=== PATIENT | male | born 1955 | race African-American/Black ===

== ENCOUNTER 2016-05-23 01:37 | Emergency (ER) | payer OTHER ==
[2016-05-23 02:16] LABS: Hematocrit 37 % (42-52); Hemoglobin 12.4 g/dl (14.0-18.0); Mean Corpuscular HGB Conc 33 g/dl (31-36); Mean Corpuscular Hemoglobin 29 pg (27-31); Mean Corpuscular Volume 87 fL (80-94); Mean Platelet Volume 8 um3 (7.4-10.4); Red Blood Count 4.25 10^6/ul (4.0-5.4); Red Cell Distribution Width 13 % (10.5-15); White Blood Count 6.8 10^3/ul (3.5-10.8)
[2016-05-23 02:25] LABS: Albumin 3.9 g/dL (3.2-5.2); BUN/Creatinine Ratio 10.3 (8-20); Calcium 9.3 mg/dL (8.6-10.3); EGFR African American 69.2 (>60); EGFR Non-African American 53.8 (>60); Globulin 3.7 g/dL (2-4); Potassium 3.7 mmol/L (3.5-5.0); Total Bilirubin 0.5 mg/dL (0.2-1.0); Total Protein 7.6 g/dL (6.4-8.9)
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
[2016-05-23 03:09] VITALS: BP 142/87
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
== END 2016-05-23 03:08 | disposition home or self-care (01) ==
LOC: ED 01:37
DX: R06.02 Shortness of breath (principal); R06.00 Dyspnea, unspecified; Z87.891 Personal history of nicotine dependence
CPT/HCPCS: 36415; 71020; 80053; 85025; 99282

== ENCOUNTER 2018-06-06 11:54 | Emergency (ER) | payer OTHER ==
[2018-06-06 14:02] VITALS: BP 159/95
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
[2018-06-06] MEDS ORDERED: NS 0.9% 1000 ML** 1,000 ML IV SCH (14:15)
== END 2018-06-06 14:30 | disposition short-term general hospital (02) ==
LOC: UCEAST 11:54
DX: N10 Acute pyelonephritis (principal); B96.20 Unspecified Escherichia coli [E. coli] as the cause of diseases classified elsewhere; R50.9 Fever, unspecified; Z87.891 Personal history of nicotine dependence
CPT/HCPCS: 81003; 87077; 87086; 87186; 96360; 99213; G0463

== ENCOUNTER 2018-06-06 15:05 | Observation (INO) | payer OTHER ==
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
[2018-06-06] MEDS ORDERED: NS 0.9% 1000 ML** 1,000 ML IV.FLUID IV ONE (15:47)
[2018-06-06 16:05] LABS: ABS Basophils 0 10^3/ul (0-0.2); ABS Eosinophils 0 10^3/ul (0-0.6); ABS Lymphocytes 1.1 10^3/ul (1.0-4.8); ABS Monocytes 1.1 10^3/ul (0-0.8); ABS Neutrophils 16.4 10^3/ul (1.5-7.7); ABS Nucleated RBC 0 10^3/ul; Eosinophil % 0 %; Hematocrit 38 % (36-46); Lymphocyte % 6.1 %; Mean Corpuscular HGB Conc 34 g/dL (31-36); Mean Corpuscular Hemoglobin 31 pg (27-31); Mean Corpuscular Volume 90 fL (80-94); Nucleated Red Blood Cells % 0.2; Platelet Count 255 10^3/uL (150-450); Red Blood Count 4.19 10^6 /uL (4.18-5.48); Red Cell Distribution Width 13 % (10.5-15); White Blood Count 18.7 10^3/uL (3.5-10.8)
[2018-06-06 16:10] LABS: Activated Partial Thrombo Time 30.6 seconds (26.0-36.3); INR 0.99 (0.77-1.02)
[2018-06-06 16:21] LABS: Troponin I 0.01 ng/mL (<0.04)
[2018-06-06 16:23] LABS: Albumin 3.9 g/dL (3.2-5.2); Albumin/Globulin Ratio 1.1 (1-3); BUN/Creatinine Ratio 8.7 (8-20); Calcium 9.1 mg/dL (8.6-10.3); EGFR African American 70.6 (>60); EGFR Non-African American 58.4 (>60); Globulin 3.7 g/dL (2-4); Potassium 4.3 mmol/L (3.5-5.0); Total Bilirubin 1.3 mg/dL (0.2-1.0); Total Protein 7.6 g/dL (6.4-8.9)
[2018-06-06 16:42] LABS: Influenza A Molecular NEGATIVE (Negative); Influenza B Molecular NEGATIVE (Negative)
[2018-06-06 16:54] LABS: Rapid Strep Molecular Negative (Negative)
[2018-06-06 17:31] LABS: Urine Appearance Clear; Urine Bacteria Absent (Absent); Urine Bilirubin Negative (Negative); Urine Blood 1+ (Negative); Urine Color Yellow; Urine Glucose Negative (Negative); Urine Ketones Negative (Negative); Urine Nitrite Negative (Negative); Urine Protein 2+(100 mg/dL) (Negative); Urine Red Blood Cell Trace(0-2/hpf) (Absent); Urine Specific Gravity 1.012 (1.010-1.030); Urine Squamous Epithelial Cell Present (Absent); Urine Urobilinogen Negative (Negative); Urine White Blood Cell 3+(>20/hpf) (Absent)
[2018-06-06] MEDS ORDERED: ED Piperacillin/Tazobac 3.375 3.375 GM/100 ML PREMIX.SET IVPB ONE (17:48)
[2018-06-06] MEDS ORDERED: Piperacillin/Tazobac (*) 3.375 GM BAG ONE (17:57)
[2018-06-06] MEDS ORDERED: Acetaminophen TAB* 325 MG PO PRN (23:22)
[2018-06-06] MEDS ORDERED: Ondansetron INJ* 2 MG/ML VIAL IV PRN (23:22)
[2018-06-06] MEDS ORDERED: Tamsulosin CAP* 0.4 MG PO ONE (23:24)
[2018-06-06] MEDS ORDERED: Enoxaparin(*) 40 MG/0.4 ML SYR SUBCUT SCH (23:45)
[2018-06-06] MEDS ORDERED: cefTRIAXone(*) 1 GM in NS 0.9% 50 ML* 50 ML IVPB ONE (23:50)
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
[2018-06-07] MEDS ORDERED: cefTRIAXone(*) 1 GM in NS 0.9% 50 ML* 50 ML IVPB SCH (01:00)
[2018-06-07] MEDS: NS 0.9% 1000 ML** 1,000 ML IV SCH ×2 (02:29→08:10)
[2018-06-07 07:19] LABS: ABS Basophils 0 10^3/ul (0-0.2); ABS Eosinophils 0 10^3/ul (0-0.6); ABS Lymphocytes 1.7 10^3/ul (1.0-4.8); ABS Neutrophils 12.6 10^3/ul (1.5-7.7); ABS Nucleated RBC 0 10^3/ul; Eosinophil % 0.2 %; Hematocrit 35 % (36-46); Hemoglobin 11.7 g/dL (14.0-18.0); Lymphocyte % 10.9 %; Mean Corpuscular HGB Conc 34 g/dL (31-36); Mean Corpuscular Hemoglobin 30 pg (27-31); Mean Corpuscular Volume 91 fL (80-94); Mean Platelet Volume 8.2 fL (7.4-10.4); Nucleated Red Blood Cells % 0; Platelet Count 219 10^3/uL (150-450); Red Blood Count 3.87 10^6 /uL (4.18-5.48); Red Cell Distribution Width 13 % (10.5-15); White Blood Count 15.3 10^3/uL (3.5-10.8)
[2018-06-07 07:29] LABS: BUN/Creatinine Ratio 8.9 (8-20); Calcium 8.6 mg/dL (8.6-10.3); EGFR Non-African American 59.5 (>60); Potassium 3.7 mmol/L (3.5-5.0)
--- NOTE | 2018-06-07 07:56 | CONSULT ---
Subjective Date of Service: 06/07/18 Review of Systems - Measurements Intake and Output: Intake and Output Last 24 Hours 06/05/18 06/06/18 06/07/18 06/08/18 06:59 06:59 06:59 06:59 Intake Total 155 Balance 155 Weight 199 lb 4.8 oz Intake: IV Fluids 100 ABX - ZOSYN 100 IVPB 55 Oral 0 Other: # Bowel Movements 0 Objective Active Medications: Acetaminophen (Tylenol Tab*) 650 mg PO Q4H PRN PRN Reason: FEVER/PAIN Enoxaparin Sodium (Lovenox(*)) 40 mg SUBCUT Q24H [facility] Last Admin: 06/07/18 02:29 Dose: 40 mg Ceftriaxone Sodium 1 gm/ (Sodium Chloride) 50 mls @ 200 mls/hr IVPB Q24H [facility] Last Admin: 06/07/18 02:28 Dose: 200 mls/hr Sodium Chloride (Ns 0.9% 1000 Ml) 1,000 mls @ 200 mls/hr IV PER RATE [facility] Stop: 06/08/18 04:29 Last Admin: 06/07/18 02:29 Dose: 200 mls/hr Ondansetron HCl (Zofran Inj*) 4 mg IV Q4H PRN PRN Reason: NAUSEA/VOMITING Pantoprazole Sodium (Protonix Tab*) 40 mg PO DAILY [facility] Vital Signs - 8 hr 06/07/18 06/07/18 06/07/18 00:59 01:25 03:25 Temperature 98.5 F 99.1 F 98.4 F Pulse Rate 94 105 101 Respiratory 18 20 24 Rate Blood Pressure 157/96 139/89 147/91 (mmHg) O2 Sat by Pulse 100 99 100 Oximetry 06/07/18 06/07/18 03:26 07:41 Temperature 98.4 F 99.1 F Pulse Rate 101 93 Respiratory 24 16 Rate Blood Pressure 147/91 130/92 (mmHg) O2 Sat by Pulse 100 100 Oximetry Oxygen Devices in Use Now: None Result Diagrams: 06/07/18 06:09 06/07/18 06:09 Microbiology and Other Data: Microbiology 06/06/18 Unknown Stool Occult Blood (BISHNU) - Final Stool Assessment/Plan - Billing Plan By Medical Problem: 1. 2. VTE PPX: Diet: Code Status: Admission Status and Rationale:
--- NOTE | 2018-06-07 08:02 | PN ---
Subjective Date of Service: 06/07/18 Interval History: HD#2 on 06/07 ID: 62 yo M THAO not on CPAP presented with UTI sx and SIRS mild NENO. Overnight no acute events, VSS, T Max 99.1, tachycardia resolved, voiding freely , tolerating PO Labs this morning still with leukocytosis to 15 otherwise all improved This morning he feels very well, no complaints, feels like he would like to go home, he says his urinary incontinence is much improved and now he still has mild dribbling but has the urge to go which is different than prior. No CP, SOB , GI complaints. Objective Active Medications: Acetaminophen (Tylenol Tab*) 650 mg PO Q4H PRN PRN Reason: FEVER/PAIN Enoxaparin Sodium (Lovenox(*)) 40 mg SUBCUT Q24H [facility] Last Admin: 06/07/18 02:29 Dose: 40 mg Ceftriaxone Sodium 1 gm/ (Sodium Chloride) 50 mls @ 200 mls/hr IVPB Q24H [facility] Last Admin: 06/07/18 02:28 Dose: 200 mls/hr Sodium Chloride (Ns 0.9% 1000 Ml) 1,000 mls @ 200 mls/hr IV PER RATE [facility] Stop: 06/08/18 04:29 Last Admin: 06/07/18 02:29 Dose: 200 mls/hr Ondansetron HCl (Zofran Inj*) 4 mg IV Q4H PRN PRN Reason: NAUSEA/VOMITING Pantoprazole Sodium (Protonix Tab*) 40 mg PO DAILY [facility] Vital Signs - 8 hr 06/07/18 06/07/18 06/07/18 00:59 01:25 03:25 Temperature 98.5 F 99.1 F 98.4 F Pulse Rate 94 105 101 Respiratory 18 20 24 Rate Blood Pressure 157/96 139/89 147/91 (mmHg) O2 Sat by Pulse 100 99 100 Oximetry 06/07/18 06/07/18 06/07/18 03:26 07:41 07:51 Temperature 98.4 F 99.1 F Pulse Rate 101 93 Respiratory 24 16 16 Rate Blood Pressure 147/91 130/92 (mmHg) O2 Sat by Pulse 100 100 100 Oximetry Oxygen Devices in Use Now: None Appearance: Well man in NAD Eyes: PERRLA Ears/Nose/Mouth/Throat: NL Teeth, Lips, Gums Neck: NL Appearance and Movements; NL JVP Respiratory: Symmetrical Chest Expansion and Respiratory Effort, Clear to Auscultation Cardiovascular: NL Sounds; No Murmurs; No JVD, RRR Abdominal: NL Sounds; No Tenderness; No Distention, No Hepatosplenomegaly Lymphatic: No Cervical Adenopathy Extremities: No Edema Skin: No Rash or Ulcers Neurological: Alert and Oriented x 3 Result Diagrams: 06/07/18 06:09 06/07/18 06:09 Microbiology and Other Data: Microbiology 06/06/18 Unknown Stool Occult Blood (BISHNU) - Final Stool Assess/Plan/Problems-Billing Assessment: 62 yo M THAO not on CPAP, EtoH use, CLBP, mild CKD, presented with UTI sx and SIRS with fever and urinary incontinence. - Patient Problems (1) SIRS (systemic inflammatory response syndrome) Current Visit: Yes Status: Acute Code(s): R65.10 - SIRS OF NON-INFECTIOUS ORIGIN W/O ACUTE ORGAN DYSFUNCTION SNOMED Code(s): 731311429 Comment: -Source urinary -Improved s/p fluid bolus and abx, only with persistent WBC, resolved. (2) Urinary tract infection Current Visit: Yes Status: Acute Comment: -s/p Zosyn x1, now on CTX Day 2/7 on 06/07-will d/c on FQ -Follow culture data -Consider G/C, though testing would be not useful now-was never sent, he will be tx empirically, s/p CTX already, x 1 dose of 1g azithromycin, has had new sexual partners (3) Urinary incontinence Current Visit: Yes Status: Acute Code(s): R32 - UNSPECIFIED URINARY INCONTINENCE SNOMED Code(s): 576002039 Comment: -In setting of UTI and pre-exisiting BPH -S/p Tamsulosin 0.4mg x 1 on 06/06, will d/c home on 14 days and can d/c afterwards (4) Low back pain Current Visit: Yes Status: Acute Code(s): M54.5 - LOW BACK PAIN SNOMED Code(s): 358515591 Comment: -Chronic without change, s/p rectal exam in ED with no red flag features -Tylenol PRN (5) Chronic kidney disease (CKD) stage G2/A1, mildly decreased glomerular filtration rate (GFR) between 60-89 mL/min/1.73 square meter and albuminuria creatinine ratio less than 30 mg/g Current Visit: Yes Status: Acute Code(s): N18.2 - CHRONIC KIDNEY DISEASE, STAGE 2 (MILD) SNOMED Code(s): 924631841 Comment: -Mild CKD at baseline, Cr stable and only mildy fluid responsive (6) THAO (obstructive sleep apnea) Current Visit: Yes Status: Acute Code(s): G47.33 - OBSTRUCTIVE SLEEP APNEA ( ADULT) (PEDIATRIC) SNOMED Code(s): 68251719 Comment: -Not on CPAP (7) DVT prophylaxis Current Visit: Yes Status: Acute Code(s): AQB0596 - SNOMED Code(s): 657968797 Comment: -Lovenox (8) Full code status Current Visit: Yes Status: Acute Code(s): Z78.9 - OTHER SPECIFIED HEALTH STATUS SNOMED Code(s): 143298206 Status and Disposition: Stable on floor, dispo: Potential d/c to home
[2018-06-07] MEDS ORDERED: Pantoprazole TAB * 40 MG TAB PO SCH (09:00)
[2018-06-07] MEDS ORDERED: Azithromycin TAB* 250 MG PO ONE (11:29)
[2018-06-07 11:42] VITALS: BP 130/76
--- NOTE | 2018-06-07 18:43 | DS ---
CC: Dr. Geovanni Red DISCHARGE SUMMARY: DISPOSITION: At time of discharge is stable to return to home. DATE OF ADMISSION: 06/06/18 DATE OF DISCHARGE: 06/07/18 PRIMARY CARE PROVIDER: Dr. Geovanni Red. PRIMARY DIAGNOSES: 1. Urinary tract infection. 2. Urinary incontinence. 3. Systemic inflammatory response syndrome positive criteria, resolved on discharge SECONDARY DIAGNOSES: 1. Obstructive sleep apnea, not currently on CPAP. 2. Gastroesophageal reflux disease. MEDICATIONS ON DISCHARGE: 1. Ciprofloxacin 500 mg p.o. b.i.d. for an additional 6 days after discharge. 2. Tamsulosin 0.4 mg p.o. q.h.s. 14 days after discharge, #14 prescribed. 3. Omeprazole 20 mg p.o. daily. 4. Cialis 5 mg p.o. daily. Medication changes on this admission is the addition of ciprofloxacin total of 6 days after discharge as well as tamsulosin for a total of 14 days after discharge. HISTORY OF PRESENT ILLNESS AND HOSPITAL COURSE: 62-year-old male with above past medical history, who presented to the emergency room by [facility] with a chief complaint of intermittent fever for 1 week. The patient reports that he had been intermittently sick with chills and had one episode of urinary incontinence. In the emergency room, he was tachycardic and febrile, mildly elevated white blood cell count. The patient was diagnosed with SIRS criteria and concern for urinary source after UA showed leuk esterase, bacteria, white blood cells and the hospitalist team was asked to evaluate the patient for admission. His hospital course by problem is as follows: 1. SIRS criteria. The patient received 2 L normal saline with immediate resolution in his fever as well as tachycardia. He also was placed on ceftriaxone. Urine cultures, as well as gonorrhea and chlamydia cultures, were sent for the patient and by hospital day 1, his vital signs returned to normal with the only persistent systemic inflammatory response being mild leukocytosis that was improving compared to admission. The patient was placed empirically on ciprofloxacin and furthermore, he was treated empirically for gonorrhea and chlamydia as he reported that he had several new sex partners in the last few days before symptoms and did not use a condom and was unsure of their gonorrhea and chlamydia status. Thus, he was treated with ceftriaxone and azithromycin 1 g total while gonorrhea and chlamydia cultures were pending. 2. Urinary tract infection. This is presumed secondary to community source possibly as above with STI complication. He will be treated on ciprofloxacin empirically for 7 days and we will follow culture data as well as GC data after discharge because he is clinically well on hospital day 2. He is stable for discharge to home. 3. Urinary incontinence. As per his ED course, the patient complained of 1 episode of urinary incontinence and has mild urge incontinence that persisted throughout his hospitalization. He was placed on tamsulosin, which helped his symptoms considerably and by hospital day 2, he felt that he had only minor leakage during urge incontinence and no mary urinary incontinence and was likely thought that this was related to his urinary tract infection. 4. Sleep apnea. The patient is noncompliant on his CPAP prior to admission and thus was not offered to him. 5. GERD. He was continued on his Protonix. He remained on DVT prophylaxis, regular diet, and he was full code during this hospitalization. By hospital day 2, after fluid resuscitation and antibiotics, the patient felt much better, was able to ambulate, tolerating p.o., voiding freely with no acute complaints and was stable to be discharged to home with followup with primary care provider. He was given a work note to be released for 2 days for continued rest in the setting of longstanding febrile urinary tract infection with ultimately systemic inflammatory response as a result. On date of discharge, the patient's vital signs on day of discharge, temperature 98, pulse rate 87, oxygen saturation 99% on room air, blood pressure 130/76, respiratory rate of 12. Labs on date of discharge, he has a white blood cell count of 15.3, hemoglobin of 11.7, hematocrit of 35, platelets of 219. BMP that shows 135 sodium, potassium 3.7, chloride 104, carbon dioxide 24, BUN 11, creatinine 1.2, and glucose 121. Other data collected in this hospitalization, rapid flu was negative and a group A strep was negative. Urine culture and gonorrhea and chlamydia are pending at time of discharge. Blood cultures were drawn as well that showed no growth to date on hospital day 2 as a preliminary result. ITEMS TO BE FOLLOWED UPON AFTER DISCHARGE: UTI. Ensure the patient's symptoms have resolved including his urge incontinence, which was new in the setting of UTI. He will be called if culture data ultimately is noncompatible with ciprofloxacin or if his gonorrhea or chlamydia were positive, he was treated empirically. TIME SPENT: Thirty minutes was spent in the planning of this discharge with over half of that spent directly at the bedside of the patient, counseling, and answering all questions. We advised him to follow up with his primary care provider and also advised him to return to the hospital if there are any new symptoms, fevers, or concerns on his part. He is agreeable to the plan and has no further questions. If there are any concerns about the care of this patient during this hospitalization, please do not hesitate to reach out and contact us. [id number]/[facility] #: [id number] DIAMOND
[2018-06-09 13:58] LABS: Hepatitis C Antibody Nonreactive (Nonreactive)
== END 2018-06-07 13:40 | disposition home or self-care (01) ==
LOC: ED 15:05 → MED 23:22
PROVIDERS: ADMIT Internal Medicine; ATTEND Internal Medicine
DX: N39.0 Urinary tract infection, site not specified (principal); R32 Unspecified urinary incontinence; R65.10 Systemic inflammatory response syndrome (SIRS) of non-infectious origin without acute organ dysfunction; G47.33 Obstructive sleep apnea (adult) (pediatric); N18.2 Chronic kidney disease, stage 2 (mild); K21.9 Gastro-esophageal reflux disease without esophagitis; R50.9 Fever, unspecified; Z87.891 Personal history of nicotine dependence; N40.0 Benign prostatic hyperplasia without lower urinary tract symptoms; R06.02 Shortness of breath; M54.5 Low back pain
CPT/HCPCS: 36415; 71046; 80048; 80053; 81003; 81015; 82270; 83605; 84484; 85025; 85610; 85730; 86703; 86803; 87040; 87651; 93005; 96361; 96365; 96372; 96375; 99283; A9270-GY; G0378; J0696; J1650; J2543

== ENCOUNTER → 2018-07-17 11:44 | Emergency (ER) | payer OTHER ==
[~2018-07-17 11:44] MED LIST: LORazepam TAB(*) 1 MG PO ONE; Sulfamethox/Trimethoprim DS 800/160* TAB PO ONE; chlordiazePOXIDE CAP* 25 MG PO ONE
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
[2018-07-17 12:41] LABS: ABS Lymphocytes 1.8 10^3/ul (1.0-4.8); ABS Monocytes 0.7 10^3/ul (0-0.8); ABS Neutrophils 4.5 10^3/ul (1.5-7.7); Eosinophil % 0.2 %; Hematocrit 40 % (42-52); Hemoglobin 13.4 g/dL (14.0-18.0); Lymphocyte % 25.6 %; Mean Corpuscular HGB Conc 34 g/dL (31-36); Mean Corpuscular Hemoglobin 31 pg (27-31); Mean Corpuscular Volume 90 fL (80-94); Mean Platelet Volume 7.6 fL (7.4-10.4); Nucleated Red Blood Cells % 0.1; Platelet Count 252 10^3/uL (150-450); Red Blood Count 4.38 10^6 /uL (4.18-5.48); Red Cell Distribution Width 14 % (10.5-15)
[2018-07-17 12:59] LABS: Albumin 4.1 g/dL (3.2-5.2); BUN/Creatinine Ratio 9.8 (8-20); EGFR African American 80.9 (>60); EGFR Non-African American 66.9 (>60); Globulin 4.1 g/dL (2-4); Magnesium 1.9 mg/dL (1.9-2.7); Potassium 4.1 mmol/L (3.5-5.0); Total Bilirubin 1.6 mg/dL (0.2-1.0); Total Protein 8.2 g/dL (6.4-8.9); Troponin I 0.01 ng/mL (<0.04)
[2018-07-17 13:16] LABS: Urine Appearance Clear; Urine Bacteria Absent (Absent); Urine Bilirubin Negative (Negative); Urine Blood 1+ (Negative); Urine Color Yellow; Urine Glucose Negative (Negative); Urine Ketones Trace (Negative); Urine Nitrite Negative (Negative); Urine Protein 2+(100 mg/dL) (Negative); Urine Red Blood Cell Trace(0-2/hpf) (Absent); Urine Specific Gravity 1.014 (1.010-1.030); Urine Squamous Epithelial Cell Present (Absent); Urine Urobilinogen Negative (Negative); Urine White Blood Cell 1+(6-10/hpf) (Absent)
[2018-07-17 13:23] LABS: Alcohol < 10 mg/dL (<10)
[2018-07-17 13:37] LABS: TSH (Thyroid Stimulating Horm) 1.26 mcIU/mL (0.34-5.60)
[2018-07-17 13:47] LABS: Urine Benzodiazepine Screen None Detected (None Detect); Urine Opiates Screen None Detected (None Detect)
[2018-07-17 15:40] VITALS: BP 132/114
[2018-07-18 12:36] LABS: Neisseria gonorrhoeae (GC) RNA Negative (Negative)
== END | disposition home or self-care (01) ==
LOC: ED 11:44
DX: F14.129 Cocaine abuse with intoxication, unspecified (principal); F10.239 Alcohol dependence with withdrawal, unspecified; Y90.0 Blood alcohol level of less than 20 mg/100 ml; R94.31 Abnormal electrocardiogram [ECG] [EKG]; N40.0 Benign prostatic hyperplasia without lower urinary tract symptoms; Z87.891 Personal history of nicotine dependence
CPT/HCPCS: 36415; 80053; 80307; 80320; 81003; 81015; 83605; 83735; 84443; 84484; 85025; 87086; 87491; 87591; 93005; 99283; A9270-GY; G0480

== ENCOUNTER 2018-08-13 07:53 | Emergency (ER) | payer OTHER ==
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
[2018-08-13] MEDS: Ketorolac INJ* 30 MG/ML 1 ML VIAL IM ONE (08:37)
[2018-08-13 08:54] VITALS: BP 159/109
== END 2018-08-13 08:52 | disposition home or self-care (01) ==
LOC: ED 07:53
DX: K64.5 Perianal venous thrombosis (principal); Z87.891 Personal history of nicotine dependence
CPT/HCPCS: 96372; 99282; J1885

== ENCOUNTER 2018-09-09 09:35 | Emergency (ER) | payer OTHER ==
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
[2018-09-09 09:52] LABS: ABS Basophils 0.1 10^3/ul (0-0.2); ABS Eosinophils 0.1 10^3/ul (0-0.6); ABS Lymphocytes 1.4 10^3/ul (1.0-4.8); ABS Monocytes 0.6 10^3/ul (0-0.8); ABS Neutrophils 6.2 10^3/ul (1.5-7.7); Hematocrit 40 % (42-52); Lymphocyte % 17.3 %; Mean Corpuscular HGB Conc 35 g/dL (31-36); Mean Corpuscular Hemoglobin 33 pg (27-31); Mean Corpuscular Volume 93 fL (80-94); Mean Platelet Volume 7.2 fL (7.4-10.4); Nucleated Red Blood Cells % 0.1; Platelet Count 265 10^3/uL (150-450); Red Blood Count 4.29 10^6 /uL (4.18-5.48); Red Cell Distribution Width 14 % (10-15); White Blood Count 8.4 10^3/uL (3.5-10.8)
--- OUTSIDE RECORDS SUMMARY | 2018-09-09 10:08 | XMS REPORT | Continuity of Care Document ---
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 Geovanni Red MD Primary Care Physician Unavailable Payers Date Identification Numbers Payment Provider Subscriber Policy Number: [id number] Julissa Blayne Jean Group Number: [id number] [address] PayID: [id number] [place] [address] Problems Active Problems Provider Date Anemia Olivia Gongora PA-C Onset: 08/05/2018 Digestive symptom Olivia Gongora PA-C Onset: 08/05/2018 Nausea Olivia Gongora PA-C Onset: 08/05/2018 Gastroesophageal reflux disease Olivia Gongora PA-C Onset: 08/05/2018 Essential hypertension Olivia Gongora PA-C Onset: 08/17/2018 Social History Type Date Description Comments Sex Unknown Tobacco Use Start: Unknown End: Unknown Patient is a former smoker Smoking Status Reviewed: 08/05/18 Patient is a former smoker Allergies, Adverse Reactions, Alerts Description No Known Drug Allergies Medications Active Medications SIG Qnty Indications Ordering Date Provider Colyte With Flavor by mouth as 4000ml Pebbles 08/11/2018 Packs directed MD Timothy 240gm Solution Rec Work Excuse Patient scheduled Pebbles 08/07/2018 for a procedure MD Timothy on 09/08/18. Please excuse from work on 09/07 and 09/08/18. Tadalafil Take 1 Tablet By Unknown 5mg Tablets Mouth Every Day Chlordiazepoxide HCL Take 1 Capsule By Unknown 25mg Mouth Three Times Capsules Daily as Needed For Withdrawal Symptoms, Maximum Daily Dose Of 3 Per Day Omeprazole 1 by mouth every Unknown 20mg Capsules DR day History Medications Suprep Bowel Prep Kit as directed sanjay Rogel 08/05/2018 - MD Timothy 08/11/2018 17.5-3.13-1.6GM/177ML Solution Vital Signs Date Vital Result Comment 08/05/2018 8:11am Height 74 inches 6'2" Weight 194.00 lb BP Systolic 161 mmHg BP Diastolic 109 mmHg Heart Rate 92 /min BMI (Body Mass Index) 24.9 kg/m2 Results Test Date Facility Test Result H/L Range Note Laboratory test 07/17/2018 [facility] Urine Drug Screen <pending> finding Alcohol 07/17/2018 [facility] Z#Other <pending> Observations CMP, Magnesium, 07/17/2018 [facility] Magnesium <pending> Phosphorus Ser/Plasma Mass/Vol Phosphorus <pending> CMP(!) 07/17/2018 [facility] Sodium(!) <pending> Potassium(!) <pending> Chloride Serum/Plasma(!) <pending> Carbon Dioxide Ser/Plasm(!) <pending> BUN - Urea Nitrogen(!) <pending> Calcium Ser/Plasma Mass/Vol(!) <pending> Creatinine Serum Mass/Vol(!) <pending> Glucose Serum(!) <pending> BUN/Creatinine Ratio(!) <pending> Albumin Serum/Plasma(!) <pending> Alkaline Phosphatase(!) <pending> Bilirubin Total Mass/Vol(!) <pending> Ast - Sgot <pending> Alt - SGPT <pending> Protein Total <pending> Laboratory test 07/17/2018 [facility] Troponin I <pending> finding CBC W/Auto 07/17/2018 [facility] White Blood Count <pending> Differential(!) Ser Auto CNT RBC Red Blood Count <pending> Hemoglobin Blood <pending> Hematocrit <pending> MCV (Corpuscular Volume) <pending> MCH (Corpuscular Hemoglobin) <pending> MCHC (Corpuscular Hemog Conc) <pending> RDW <pending> Platelet Count Blood Auto CNT <pending> MPV <pending> Lymph% <pending> Castro% <pending> Neutrophil % <pending> Absolute Lymphocytes <pending> Absolute Monocytes <pending> Absolute Neutrophils <pending> Plan of Treatment Future Appointment(s):09/08/2018 12:15 pm - Pebbles Aguirre MD at [facility]08/05/2018 - CDE Rosenbaum-CK21.9 Gastro-esophageal reflux disease without eneqwvnlhdxR84.0 GlbdhjF09.4 Change in bowel whtwdB88.9 Anemia, unspecified
--- OUTSIDE RECORDS SUMMARY | 2018-09-09 10:08 | XMS REPORT | Continuity of Care Document ---
:1955 External Reference #:[id number] Author Name Elda Bowles Care Team Providers Name Role Phone Geovanni Red MD Primary Care Physician Unavailable Payers Date Identification Numbers Payment Provider Subscriber Effective: 2011 Policy Number: [id number] [employer] Blayne Jean Expires: 2018 PayID: [id number] [address] [address] [place] [address] Effective: 2011 Policy Number: [id number] [employer] Blayne Jean Expires: 2011 PayID: [id number] [address] [address] [place] [address] Policy Number: [id number] [employer] Blayne Jean PayID: [id number] [address] [place] [address] Family History Date Family Member(s) Observation Comments General Non-Contributory Social History Type Date Description Comments Sex Unknown Marital Status Single Occupation Currently Working ETOH Use consumes 5-6 beers per day Tobacco Use Start: Unknown End: Patient is a former smoker Unknown Recreational Drug Use Denies Drug Use Smoking Status Reviewed: 08/19/18 Patient is a former smoker Exercise Type/Frequency Does not exercise Allergies, Adverse Reactions, Alerts Active Allergies Reaction Severity Comments Date [place] Pectin Extract GI Upset 08/15/2018 Seeded Fruit GI Upset 08/15/2018 Medications Active Medications SIG Qnty Indications Ordering Provider Date Ibuprofen as needed Unknown 200mg Tablets Tadalafil Take 1 Tablet By Unknown 5mg Tablets Mouth Every Day Omeprazole 1 by mouth every Unknown 20mg Capsules day DR History Medications Tamsulosin HCL 1 po qd 30caps [place] Mace MD - Unknown 0.4mg Capsules Cephalexin one po qid [facility] - Unknown 500mg Tablets [place] Anusol-HC one twice a day Unknown - Unknown 25mg for 3 days Suppository Vital Signs Date Vital Result Comment 08/19/2018 1:08pm Height 72 inches 6'0" Weight 198.00 lb Heart Rate 84 /min BP Systolic Sitting 160 mmHg BP Diastolic Sitting 94 mmHg Respiratory Rate 18 /min Body Temperature 98.2 F BMI (Body Mass Index) 26.9 kg/m2 Procedures Date Code Description Status 09/18/2011 90966 Polysomnography Sleep Staging 4+ Parameters W/Cpap Completed 08/22/2011 81063 Polysomnography Sleep Staging 4+ Parameters Completed Encounters Type Date Location Provider Dx Diagnosis Office Visit 06/07/2018 [facility] Liliya Luevano MD N39.41 Urge incontinence 9:55a natasha King Hospital[facility] R65.10 Sirs of non-infectious origin w/o acute organ dysfunction Office Visit 06/06/2018 [facility] Blayne R65.10 Sirs of 2:54p natasha King M.D. non-infectious Hospitalists origin w/o acute organ dysfunction R32 Unspecified urinary incontinence R35.0 Frequency of micturition M54.5 Low back pain N18.9 Chronic kidney disease, unspecified F10.20 Alcohol dependence, uncomplicated Office Visit 10/08/2011 10:53a Abby Cisneros 327.23 [facility] Jay Mora [facility] Pediatric V67.59 Exam Follow Up Other Office Visit 09/22/2011 Neurosurgery Iam Ospina 721.1 Spondylosis 10:00a [facility] Swan M.D. Cervical W/ Myelopathy Office Visit 08/31/2011 Abby Cisneros 327.23 Obstructive Sleep 11:50a Disorder Center Jay Mora Apnea Adult & Pediatric Office Visit 07/01/2009 [facility] 786.50 Pain Chest Unspec 2:00a Assnatasha nair M.D. Hospitalists 530.81 Esophageal Reflux 272.0 Hypercholesterolemia Pure Office Visit 06/30/2009 3:15a [facility] Chris Bach 786.50 Pain Chest Assnatasha nair M.D. Unspec Hospitalists 530.81 Esophageal Reflux
[2018-09-09 10:17] LABS: Albumin 3.8 g/dL (3.2-5.2); BUN/Creatinine Ratio 8.3 (8-20); Calcium 9.2 mg/dL (8.6-10.3); EGFR African American 66.9 (>60); EGFR Non-African American 55.3 (>60); Globulin 3.9 g/dL (2-4); Potassium 4.1 mmol/L (3.5-5.0); Total Protein 7.7 g/dL (6.4-8.9)
[2018-09-09 14:41] VITALS: BP 157/101
== END 2018-09-09 14:40 | disposition home or self-care (01) ==
LOC: ED 09:35
DX: R07.9 Chest pain, unspecified (principal); K21.9 Gastro-esophageal reflux disease without esophagitis; Z87.891 Personal history of nicotine dependence
CPT/HCPCS: 36415; 71045; 74019; 80053; 83605; 84484; 85025; 93005; 99283

== ENCOUNTER 2018-11-07 07:14 | Emergency (ER) | payer OTHER ==
[2018-11-07] MEDS ORDERED: NS 0.9% 1000 ML** 1,000 ML IV ONE (07:26)
[2018-11-07 07:49] LABS: ABS Basophils 0.1 10^3/ul (0-0.2); ABS Monocytes 0.6 10^3/ul (0-0.8); ABS Neutrophils 6.7 10^3/ul (1.5-7.7); Eosinophil % 0.1 %; Hematocrit 38 % (42-52); Hemoglobin 13.1 g/dL (14.0-18.0); Lymphocyte % 21.3 %; Mean Corpuscular HGB Conc 35 g/dL (31-36); Mean Corpuscular Hemoglobin 32 pg (27-31); Mean Corpuscular Volume 93 fL (80-94); Mean Platelet Volume 7.1 fL (7.4-10.4); Nucleated Red Blood Cells % 0.1; Platelet Count 313 10^3/uL (150-450); Red Blood Count 4.07 10^6 /uL (4.18-5.48); Red Cell Distribution Width 14 % (10-15); White Blood Count 9.4 10^3/uL (3.5-10.8)
[2018-11-07 08:09] LABS: Sodium 137 mmol/L (135-145)
[2018-11-07 08:10] LABS: Anion Gap 9 mmol/L (2-11); BUN/Creatinine Ratio 9.2 (8-20); Blood Urea Nitrogen 11 mg/dL (6-24); CO2 Carbon Dioxide 25 mmol/L (22-32); Calcium 9.4 mg/dL (8.6-10.3); Chloride 103 mmol/L (101-111); EGFR African American 75.2 (>60); EGFR Non-African American 62.1 (>60); Glucose 114 mg/dL (70-100); Potassium 3.8 mmol/L (3.5-5.0)
[2018-11-07 08:11] LABS: ALT 35 U/L (7-52); AST 49 U/L (13-39); Albumin 3.9 g/dL (3.2-5.2); Albumin/Globulin Ratio 1.1 (1-3); Alkaline Phosphatase 64 U/L (34-104); Globulin 3.6 g/dL (2-4); Magnesium 1.6 mg/dL (1.9-2.7); Total Protein 7.5 g/dL (6.4-8.9)
[2018-11-07 08:13] LABS: Alcohol < 10 mg/dL (<10)
[2018-11-07 08:28] LABS: TSH (Thyroid Stimulating Horm) 1.52 mcIU/mL (0.34-5.60)
[2018-11-07 08:46] LABS: Troponin I 0.01 ng/mL (<0.04)
[2018-11-07 09:27] LABS: Urine Benzodiazepine Screen Presumptive Positive (None Detect); Urine Opiates Screen None Detected (None Detect)
[2018-11-07] MEDS ORDERED: Famotidine IV* 10 MG/ML 2 ML (20 mg) IV SLOW PU ONE (09:29)
[2018-11-07] MEDS ORDERED: Aspirin 81 mg CHEW TAB* 81 MG TAB.CHEW PO ONE (09:30)
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
[2018-11-07] MEDS ORDERED: hydrALAZINE IV* 20 MG/ML VIAL IV SLOW PU ONE (09:41)
[2018-11-07 11:34] VITALS: BP 171/111
== END 2018-11-07 11:30 | disposition home or self-care (01) ==
LOC: ED 07:14
DX: I20.9 Angina pectoris, unspecified (principal); N40.0 Benign prostatic hyperplasia without lower urinary tract symptoms; Z87.891 Personal history of nicotine dependence; Z79.899 Other long term (current) drug therapy
CPT/HCPCS: 36415; 71046; 80053; 80307; 80320; 83605; 83735; 84443; 84484; 85025; 93005; 96361; 96374; 96375; 99285; A9270-GY; G0480; J0360

== ENCOUNTER 2021-01-29 09:10 | Observation (INO) ==
[2021-01-29 09:36] LABS: ABS Basophils 0.1 10^3/ul (0-0.2); ABS Eosinophils 0.2 10^3/ul (0-0.6); ABS Lymphocytes 2.4 10^3/ul (1.0-4.8); ABS Monocytes 0.7 10^3/ul (0-0.8); Eosinophil % 2.8 %; Hematocrit 39 % (42-52); Hemoglobin 13.7 g/dL (14.0-18.0); Lymphocyte % 38.4 %; Mean Corpuscular HGB Conc 35 g/dL (31-36); Mean Corpuscular Hemoglobin 33 pg (27-31); Mean Corpuscular Volume 93 fL (80-94); Platelet Count 219 10^3/uL (150-450); Red Blood Count 4.22 10^6 /uL (4.18-5.48); Red Cell Distribution Width 13 % (10-15); White Blood Count 6.4 10^3/uL (3.5-10.8)
[2021-01-29 09:55] LABS: ALT 81 U/L (7-52); Albumin/Globulin Ratio 0.9 (1-3); Alkaline Phosphatase 86 U/L (35-149); Blood Urea Nitrogen 10 mg/dL (6-24); CO2 Carbon Dioxide 22 mmol/L (22-32); Calcium 9.2 mg/dL (8.6-10.3); Chloride 101 mmol/L (101-111); Globulin 4.5 g/dL (2-4); Glucose 136 mg/dL (70-100); Lipase 40 U/L (11.0-82.0); Sodium 135 mmol/L (135-145); Total Protein 8.5 g/dL (6.4-8.9); eGFR CKD-EPI 61.2 (>60)
[2021-01-29 09:57] LABS: Troponin I 0.01 ng/mL (<0.03)
[2021-01-29 10:03] LABS: INR 1.07 (0.86-1.15)
[2021-01-29] MEDS ORDERED: Ondansetron 4 mg VIAL 2 MG/ML 2 ml VIAL IV ONE (10:12)
[2021-01-29] MEDS ORDERED: LORazepam 2 mg VIAL 1 ml IV PUSH ONE ×2 (10:12→12:42)
[2021-01-29] MEDS ORDERED: Lorazepam PYXIS KEY PRN ×2 (10:12→12:42)
[2021-01-29] MEDS ORDERED: NS 0.9% 1000 ml BAG 1,000 ML IV ONE (10:12)
[2021-01-29 10:35] LABS: Anion Gap 12 mmol/L (2-11)
[2021-01-29 11:59] LABS: Magnesium 1.6 mg/dL (1.9-2.7); Potassium Redraw 4.4 mmol/L (3.5-5.0)
[2021-01-29] MEDS ORDERED: Magnesium Sulfate 2 gm BAG 2 GM/50 ML BAG IVPB ONE (12:06)
[2021-01-29] MEDS ORDERED: hydrALAZINE 20 mg/ml 1 ML Vial IV IV SLOW PU ONE ×2 (12:10→12:42)
[2021-01-29] MEDS ORDERED: LORazepam 2 mg VIAL 1 ml ONE (12:44)
[2021-01-29 13:35] LABS: Urine Appearance Cloudy; Urine Bilirubin Negative (Negative); Urine Blood 1+ (Negative); Urine Color Yellow; Urine Glucose Negative (Negative); Urine Ketones Negative (Negative); Urine Nitrite Negative (Negative); Urine Protein 2+(100 mg/dL) (Negative); Urine Specific Gravity 1.016 (1.002-1.030); Urine Urobilinogen Negative (Negative)
[2021-01-29 13:43] LABS: Urine Bacteria Absent (Absent); Urine Red Blood Cell 1+(3-5/hpf) (Absent); Urine White Blood Cell Absent (Absent)
[2021-01-29 13:50] LABS: Alcohol, S 109 mg/dL (<13)
[2021-01-29 13:52] LABS: Urine Benzodiazepine Screen Presumptive Positive (None Detect); Urine Cannabinoids Screen None Detected (None Detect); Urine Opiates Screen None Detected (None Detect)
[2021-01-29] MEDS ORDERED: Thiamine 100 MG/ML 2 ml VIAL (200 mg) IM ONE (14:43)
[2021-01-29] MEDS ORDERED: Ondansetron 4 mg VIAL 2 MG/ML 2 ml VIAL IV PRN (14:45)
[2021-01-29 16:09] LABS: Rapid COVID-19 Molecular Undetected (Undetected)
[2021-01-29] MEDS: Enoxaparin 40 MG/0.4 ML SYR SUBCUT SCH (17:32)
[2021-01-30] MEDS ORDERED: Polyethylene Glycol 3350 17 GM PACKET PO ONE ×2 (02:24→10:00)
[2021-01-30 06:30] LABS: ABS Basophils 0.1 10^3/ul (0-0.2); ABS Eosinophils 0.1 10^3/ul (0-0.6); ABS Monocytes 0.6 10^3/ul (0-0.8); Eosinophil % 1.2 %; Hematocrit 35 % (42-52); Hemoglobin 12.3 g/dL (14.0-18.0); Lymphocyte % 29.4 %; Mean Corpuscular HGB Conc 35 g/dL (31-36); Mean Corpuscular Hemoglobin 33 pg (27-31); Mean Corpuscular Volume 93 fL (80-94); Mean Platelet Volume 8.4 fL (7.4-10.4); Nucleated Red Blood Cells % 0.1; Platelet Count 173 10^3/uL (150-450); Red Blood Count 3.76 10^6 /uL (4.18-5.48); Red Cell Distribution Width 13 % (10-15); White Blood Count 6.7 10^3/uL (3.5-10.8)
[2021-01-30 06:48] LABS: Albumin 3.6 g/dL (3.2-5.2); Calcium 9.2 mg/dL (8.6-10.3); Globulin 3.7 g/dL (2-4); Potassium 4.2 mmol/L (3.5-5.0); Total Bilirubin 1.4 mg/dL (0.2-1.0); Total Protein 7.3 g/dL (6.4-8.9)
[2021-01-30] MEDS: Multivitamins/Minerals TAB PO SCH (09:20)
[2021-01-30] MEDS: Enoxaparin 40 MG/0.4 ML SYR SUBCUT SCH (17:30)
[2021-01-30 22:02] LABS: Total Bilirubin 1.2 mg/dL (0.2-1.0)
[2021-01-31 05:18] LABS: ABS Eosinophils 0.2 10^3/ul (0-0.6); ABS Lymphocytes 1.6 10^3/ul (1.0-4.8); ABS Monocytes 0.5 10^3/ul (0-0.8); ABS Neutrophils 2.8 10^3/ul (1.5-7.7); Eosinophil % 3.2 %; Hematocrit 38 % (42-52); Hemoglobin 13.1 g/dL (14.0-18.0); Mean Corpuscular HGB Conc 34 g/dL (31-36); Mean Corpuscular Hemoglobin 32 pg (27-31); Mean Corpuscular Volume 94 fL (80-94); Mean Platelet Volume 8.5 fL (7.4-10.4); Platelet Count 157 10^3/uL (150-450); Red Blood Count 4.07 10^6 /uL (4.18-5.48); Red Cell Distribution Width 14 % (10-15); White Blood Count 5.1 10^3/uL (3.5-10.8)
[2021-01-31 05:42] LABS: Albumin 3.6 g/dL (3.2-5.2); Albumin/Globulin Ratio 0.9 (1-3); Calcium 9.5 mg/dL (8.6-10.3); Magnesium 1.9 mg/dL (1.9-2.7); Potassium 4.3 mmol/L (3.5-5.0); Total Bilirubin 0.9 mg/dL (0.2-1.0); Total Protein 7.6 g/dL (6.4-8.9); eGFR CKD-EPI 66.6 (>60)
[2021-01-31] MEDS: Multivitamins/Minerals TAB PO SCH (10:06)
[2021-01-31 12:14] VITALS: BP 113/77
== END 2021-01-31 13:28 | disposition home or self-care (01) ==
LOC: ED 09:10 → EDHOLD 09:10 → SUATTDRO 14:45 → MEDTELE 20:45
PROVIDERS: ADMIT Nurse Practitioner Adult Health; ATTEND Internal Medicine

== ENCOUNTER 2022-08-20 01:16 | Inpatient (IN) ==
[2022-08-20] MEDS ORDERED: Ondansetron 4 mg VIAL 2 MG/ML 2 ml VIAL IV ONE (01:47)
[2022-08-20] MEDS ORDERED: NS 0.9% 1000 ml BAG 2,000 ML IV ONE (01:47)
[2022-08-20 02:14] LABS: Hematocrit 32.2 % (38-53); Hemoglobin 11.2 g/dL (13.2-16.3); Mean Corpuscular Hemoglobin 32.1 pg (27-33); Mean Corpuscular Hgb Conc 34.9 g/dL (31-36); Mean Corpuscular Volume 91.9 fL (80-97); Mean Platelet Volume 8.7 fL (7.5-11.2); Platelet Count 201 10^3/uL (150-450); Red Blood Count 3.51 10^6/uL (4.06-5.63); Red Cell Distribution Width 13.9 % (12-17); White Blood Count 15.2 10^3/uL (3.6-10.2)
[2022-08-20 02:18] LABS: ABS Basophils 0.1 10^3/uL (0.0-0.1); ABS Lymphocytes 0.8 10^3/uL (1.0-4.8); ABS Monocytes 1.9 10^3/uL (0.0-1.1); ABS Neutrophils 12.4 10^3/uL (1.5-7.6); Lymphocyte % 5.4 %
[2022-08-20 02:20] LABS: INR 1.31 (0.88-1.18)
[2022-08-20 02:30] LABS: ALT 27 U/L (7-52); AST 57 U/L (13-39); Albumin 3.4 g/dL (3.2-5.2); Albumin/Globulin Ratio 0.6 (1-3); Alkaline Phosphatase 69 U/L (35-149); Anion Gap 12 mmol/L (2-16); Blood Urea Nitrogen 34 mg/dL (6-24); CO2 Carbon Dioxide 21 mmol/L (22-32); Calcium 9.3 mg/dL (8.6-10.3); Chloride 90 mmol/L (101-111); Creatinine, Serum 2.79 mg/dL (0.67-1.17); Globulin 5.4 g/dL (2-4); Glucose 126 mg/dL (70-100); Potassium 4.1 mmol/L (3.5-5.0); Sodium 123 mmol/L (135-145); Total Protein 8.8 g/dL (6.4-8.9); eGFR CKD-EPI 24.5 (>60)
[2022-08-20 02:36] LABS: Alcohol, S < 13 mg/dL (<13); High Sens Troponin Baseline 17 pg/mL (<20)
[2022-08-20] MEDS ORDERED: Albuterol HFA INHALER 8 gm MDI INH PRN (06:47)
[2022-08-20 07:22] LABS: Osmolality Serum 274 mOsm/kg (275-295)
[2022-08-20 07:33] LABS: Magnesium 1.3 mg/dL (1.9-2.7)
[2022-08-20] MEDS ORDERED: Magnesium Sulf 4 GM/100 ML IV 4,000 MG/100 ML BAG IVPB ONE (07:55)
[2022-08-20 07:57] LABS: Vitamin B12 306 pg/mL (180-914)
[2022-08-20] MEDS ORDERED: Lactated Ringers 1000 ml BAG 1,000 ML IV SCH ×3 (08:00→17:58)
[2022-08-20 09:57] LABS: Calcium 8.8 mg/dL (8.6-10.3); Creatinine, Serum 3.06 mg/dL (0.67-1.17); Magnesium 1.4 mg/dL (1.9-2.7); Potassium 4.1 mmol/L (3.5-5.0)
[2022-08-20 09:58] LABS: Albumin 3.4 g/dL (3.2-5.2); Albumin/Globulin Ratio 0.7 (1-3); Calcium 8.7 mg/dL (8.6-10.3); Creatinine, Serum 3.04 mg/dL (0.67-1.17); Potassium 4.3 mmol/L (3.5-5.0); Total Bilirubin 1.5 mg/dL (0.2-1.0); Total Protein 8.4 g/dL (6.4-8.9); eGFR CKD-EPI 22.1 (>60)
[2022-08-20 16:05] LABS: Calcium 9.1 mg/dL (8.6-10.3); Creatinine, Serum 2.98 mg/dL (0.67-1.17); Potassium 4.3 mmol/L (3.5-5.0); eGFR CKD-EPI 22.7 (>60)
[2022-08-20 16:10] LABS: Urine Osmo 348 mOsm/kg (150-1150)
[2022-08-20 16:15] LABS: Urine Benzodiazepine Screen None Detected (None Detect); Urine Cannabinoids Screen None Detected (None Detect); Urine Opiates Screen None Detected (None Detect)
[2022-08-20] MEDS ORDERED: Enoxaparin 40 MG/0.4 ML SYR SUBCUT SCH (20:00)
[2022-08-20] MEDS: Heparin 5000 UNITS/ML 1 mL VIAL SUBCUT SCH (21:01)
[2022-08-21] MEDS: Ondansetron 4 mg VIAL 2 MG/ML 2 ml VIAL IV PRN ×2 (02:26→17:39)
[2022-08-21 03:20] LABS: Mean Corpuscular Hemoglobin 32.2 pg (27-33); Mean Corpuscular Hgb Conc 34.9 g/dL (31-36); Mean Corpuscular Volume 92.2 fL (80-97); Mean Platelet Volume 8.8 fL (7.5-11.2); Platelet Count 151 10^3/uL (150-450); Red Blood Count 3.14 10^6/uL (4.06-5.63); Red Cell Distribution Width 14.2 % (12-17); White Blood Count 9.5 10^3/uL (3.6-10.2)
[2022-08-21 03:28] LABS: Albumin 2.8 g/dL (3.2-5.2); Calcium 8.1 mg/dL (8.6-10.3); Magnesium 2.1 mg/dL (1.9-2.7); Potassium 4.1 mmol/L (3.5-5.0); Total Bilirubin 0.9 mg/dL (0.2-1.0)
[2022-08-21] MEDS ORDERED: NS 0.9% 1000 ml BAG 1,000 ML IV SCH (03:30)
[2022-08-21 03:34] LABS: Albumin/Globulin Ratio 0.7 (1-3); C Reactive Protein 146.95 mg/L (<8.01); Creatinine, Serum 2.14 mg/dL (0.67-1.17); Total Protein 6.8 g/dL (6.4-8.9); eGFR CKD-EPI 33.7 (>60)
[2022-08-21 04:10] LABS: Calcium 8.5 mg/dL (8.6-10.3); Creatinine, Serum 2.21 mg/dL (0.67-1.17); Potassium 4.1 mmol/L (3.5-5.0); eGFR CKD-EPI 32.5 (>60)
[2022-08-21 04:15] LABS: Hypochromasia 2+
[2022-08-21 04:16] LABS: Polychromasia 1+; Target Cells 1+
[2022-08-21 04:18] LABS: ABS Lymphocytes 0.7 10^3/uL (1.0-4.8); ABS Monocytes 1.7 10^3/uL (0.0-1.1); ABS Neutrophils 7.1 10^3/uL (1.5-7.6); ABS Nucleated RBC 0.01 10^3/ul; Eosinophil % 0.2 %; Lymphocyte % 7.3 %; Nucleated Red Blood Cells % 0.1 /100 WBC (0.0-0.4)
[2022-08-21] MEDS: Heparin 5000 UNITS/ML 1 mL VIAL SUBCUT SCH ×2 (09:38→21:42)
[2022-08-21] MEDS: NS 0.9% 1000 ml BAG 1,000 ML IV SCH ×2 (11:50→21:41)
[2022-08-21 12:15] LABS: Urine Appearance Cloudy; Urine Bilirubin Negative (Negative); Urine Blood 1+ (Negative); Urine Color Yellow; Urine Glucose Negative (Negative); Urine Ketones Negative (Negative); Urine Nitrite Negative (Negative); Urine Protein Negative (Negative); Urine Urobilinogen Negative (Negative)
[2022-08-21 12:21] LABS: Urine Bacteria 3+ (Absent); Urine Red Blood Cell Trace(0-2/hpf) (Absent); Urine Squamous Epithelial Cell Present (Absent); Urine White Blood Cell 3+(>20/hpf) (Absent)
[2022-08-21 14:10] LABS: Calcium 8.6 mg/dL (8.6-10.3); Creatinine, Serum 1.85 mg/dL (0.67-1.17); Potassium 3.9 mmol/L (3.5-5.0); eGFR CKD-EPI 40.2 (>60)
[2022-08-21 19:55] LABS: Calcium 8.1 mg/dL (8.6-10.3); Creatinine, Serum 1.72 mg/dL (0.67-1.17); Potassium 4.2 mmol/L (3.5-5.0); eGFR CKD-EPI 43.8 (>60)
[2022-08-22] MEDS: NS 0.9% 1000 ml BAG 1,000 ML IV SCH ×2 (05:53→07:02)
[2022-08-22 06:14] LABS: Hematocrit 28.4 % (38-53); Mean Corpuscular Hemoglobin 31.7 pg (27-33); Mean Corpuscular Hgb Conc 35.1 g/dL (31-36); Mean Corpuscular Volume 90.4 fL (80-97); Platelet Count 173 10^3/uL (150-450); Red Blood Count 3.14 10^6/uL (4.06-5.63); Red Cell Distribution Width 13.6 % (12-17); White Blood Count 8.3 10^3/uL (3.6-10.2)
[2022-08-22 06:15] LABS: Mean Platelet Volume 8.9 fL (7.5-11.2)
[2022-08-22 06:35] LABS: Creatinine, Serum 1.59 mg/dL (0.67-1.17); Magnesium 1.6 mg/dL (1.9-2.7); eGFR CKD-EPI 48.2 (>60)
[2022-08-22 06:55] LABS: ABS Monocytes 1.7 10^3/uL (0.0-1.1); ABS Neutrophils 5.5 10^3/uL (1.5-7.6); Eosinophil % 0.6 %; Lymphocyte % 11.9 %
[2022-08-22] MEDS: Heparin 5000 UNITS/ML 1 mL VIAL SUBCUT SCH ×2 (07:43→19:59)
[2022-08-22] MEDS ORDERED: Magnesium Sulf 4 GM/100 ML IV 4,000 MG/100 ML BAG IVPB ONE (08:30)
[2022-08-22 17:20] LABS: Calcium 8.2 mg/dL (8.6-10.3); Creatinine, Serum 1.42 mg/dL (0.67-1.17); Potassium 4.5 mmol/L (3.5-5.0); eGFR CKD-EPI 55.2 (>60)
[2022-08-23 06:49] LABS: Hematocrit 31.9 % (38-53); Hemoglobin 10.8 g/dL (13.2-16.3); Mean Corpuscular Hemoglobin 31.6 pg (27-33); Mean Platelet Volume 8.6 fL (7.5-11.2); Platelet Count 224 10^3/uL (150-450); Red Blood Count 3.43 10^6/uL (4.06-5.63); Red Cell Distribution Width 14.2 % (12-17); White Blood Count 7.8 10^3/uL (3.6-10.2)
[2022-08-23 06:55] LABS: Calcium 8.4 mg/dL (8.6-10.3); Creatinine, Serum 1.4 mg/dL (0.67-1.17); Potassium 4.3 mmol/L (3.5-5.0); eGFR CKD-EPI 56.1 (>60)
[2022-08-23] MEDS: Heparin 5000 UNITS/ML 1 mL VIAL SUBCUT SCH (08:31)
[2022-08-23 10:02] VITALS: BP 115/79
== END 2022-08-23 13:40 | disposition home or self-care (01) | DRG 872 ==
LOC: ED 01:16 → EDHOLD 05:04 → SUATTDRO 05:04 → MED 08:14
PROVIDERS: ADMIT Internal Medicine; ATTEND Internal Medicine

== ENCOUNTER 2023-06-22 15:15 | Observation (INO) ==
[2023-06-22 16:42] LABS: ABS Basophils 0.1 10^3/uL (0.0-0.1); ABS Lymphocytes 0.8 10^3/uL (1.0-4.8); ABS Monocytes 0.6 10^3/uL (0.0-1.1); ABS Nucleated RBC 0.01 10^3/ul; Eosinophil % 0.1 %; Hematocrit 35.8 % (38-53); Hemoglobin 12.3 g/dL (13.2-16.3); Lymphocyte % 8.6 %; Mean Corpuscular Hemoglobin 32.1 pg (27-33); Mean Corpuscular Hgb Conc 34.5 g/dL (31-36); Mean Platelet Volume 8.1 fL (7.5-11.2); Nucleated Red Blood Cells % 0.1 %/100WBC (0.0-0.8); Platelet Count 206 10^3/uL (150-450); Red Blood Count 3.85 10^6/uL (4.06-5.63); Red Cell Distribution Width 14.3 % (12-17); White Blood Count 9.5 10^3/uL (3.6-10.2)
[2023-06-22 16:43] LABS: Urine Appearance Turbid; Urine Bilirubin Negative (Negative); Urine Blood 1+ (Negative); Urine Color Yellow; Urine Glucose Negative (Negative); Urine Ketones Negative (Negative); Urine Nitrite Negative (Negative); Urine Protein 2+ (>=100 mg/dL) (Negative); Urine Specific Gravity 1.014 (1.002-1.030); Urine Urobilinogen 2+ (Negative)
[2023-06-22 16:52] LABS: INR 1.13 (0.83-1.13)
[2023-06-22] MEDS: Lactated Ringers 1000 ml BAG 1,000 ML IV ONE ×3 (17:00→22:05)
[2023-06-22 17:02] LABS: Urine Bacteria 1+ /HPF (Absent); Urine Red Blood Cell 2+(6-10/hpf) /HPF (0-Trace); Urine Squamous Epithelial Cell Present /HPF (Absent); Urine Transitional Epithelial Present /HPF (Absent); Urine White Blood Cell 3+(>20/hpf) /HPF (0-Trace)
[2023-06-22 17:21] LABS: Albumin 4.2 g/dL (3.2-5.2); Albumin/Globulin Ratio 0.8 (1-3); C Reactive Protein 6.93 mg/L (<8.01); Calcium 9.8 mg/dL (8.6-10.3); Creatinine, Serum 1.78 mg/dL (0.67-1.17); Globulin 5.3 g/dL (2-4); Magnesium 1.4 mg/dL (1.9-2.7); Potassium 4.8 mmol/L (3.5-5.0); Total Protein 9.5 g/dL (6.4-8.9); eGFR CKD-EPI 41.8 (>60)
[2023-06-22] MEDS: diazePAM INJ CARPUJECT 5 MG/ML SYRINGE IV ONE (17:33)
[2023-06-22 17:57] LABS: Alcohol, S < 13 mg/dL (<13)
[2023-06-22] MEDS: Magnesium Sulfate 2 gm BAG 2 GM/50 ML BAG IVPB ONE ×2 (19:14→21:49)
[2023-06-22] MEDS: cefTRIAXone 1 gm/50 mL D5W 1 GM/50 ML BAG IV SCH (21:26)
[2023-06-22] MEDS: Magnesium Sulfate IV 1GM/100ML 1 GM/100 ML BAG IV ONE (21:49)
[2023-06-23] MEDS ORDERED: hydrALAZINE 20 mg/ml 1 ML Vial IV IV SLOW PU PRN (00:29)
[2023-06-23 01:07] LABS: Folate 10.36 ng/mL (5.90-24.80)
[2023-06-23 01:08] LABS: Vitamin B12 355 pg/mL (180-914)
[2023-06-23] MEDS: Lactated Ringers 1000 ml BAG 1,000 ML IV SCH (03:31)
[2023-06-23] MEDS: Enoxaparin 40 MG/0.4 ML SYR SUBCUT SCH ×2 (03:31→04:43)
[2023-06-23] MEDS: Thiamine 100 MG/ML 2 ml VIAL 100 MG in NS 0.9% 50 ML 50 ML IV SCH (03:31)
[2023-06-23] MEDS ORDERED: Vancomycin 750 MG in NS 0.9% 250 ml 250 ML IVPB SCH (03:56)
[2023-06-23] MEDS ORDERED: Vancomycin per Pharmacy 1 EA NOTE FOLLOW UP PRN (04:01)
[2023-06-23] MEDS: Vancomycin 1,500 MG in NS 0.9% 250 ml 250 ML IVPB ONE (05:33)
[2023-06-23 07:01] LABS: Calcium 9.1 mg/dL (8.6-10.3); Creatinine, Serum 1.53 mg/dL (0.67-1.17); Magnesium 1.7 mg/dL (1.9-2.7); Potassium 4.2 mmol/L (3.5-5.0); eGFR CKD-EPI 50.1 (>60)
[2023-06-23 09:30] LABS: Albumin 3.5 g/dL (3.2-5.2); Albumin/Globulin Ratio 0.8 (1-3); Direct Bilirubin 0.7 mg/dL (0.03-0.18); Globulin 4.5 g/dL (2-4); Indirect Bilirubin 1.3 mg/dL (0.3-1.0)
[2023-06-23] MEDS ORDERED: Vancomycin 750 MG in NS 0.9% 250 ML IVPB SCH (18:00)
[2023-06-24 05:56] LABS: ABS Eosinophils 0.1 10^3/uL (0.0-0.5); ABS Lymphocytes 1.5 10^3/uL (1.0-4.8); ABS Monocytes 0.7 10^3/uL (0.0-1.1); ABS Neutrophils 4.9 10^3/uL (1.5-7.6); ABS Nucleated RBC 0.01 10^3/ul; Eosinophil % 1.8 %; Hematocrit 29.5 % (38-53); Hemoglobin 10.3 g/dL (13.2-16.3); Lymphocyte % 20.6 %; Mean Corpuscular Hemoglobin 32.6 pg (27-33); Mean Corpuscular Hgb Conc 34.9 g/dL (31-36); Mean Corpuscular Volume 93.2 fL (80-97); Mean Platelet Volume 8.3 fL (7.5-11.2); Nucleated Red Blood Cells % 0.2 %/100WBC (0.0-0.8); Platelet Count 143 10^3/uL (150-450); Red Blood Count 3.17 10^6/uL (4.06-5.63); Red Cell Distribution Width 14.1 % (12-17); White Blood Count 7.3 10^3/uL (3.6-10.2)
[2023-06-24 06:17] VITALS: BP 151/99
[2023-06-24 06:39] LABS: Calcium 8.9 mg/dL (8.6-10.3); Creatinine, Serum 1.79 mg/dL (0.67-1.17); Potassium 4.4 mmol/L (3.5-5.0); eGFR CKD-EPI 41.5 (>60)
[2023-06-24] MEDS ORDERED: Vancomycin Trough Check NOTE FOLLOW UP ONE (17:30)
== END 2023-06-24 10:13 | disposition home or self-care (01) ==
LOC: ED 15:15 → EDHOLD 15:15 → MED 23:54 → SUATTDRO 23:55 → MED 06-23 01:51 → UNDODISOB 06-23 02:21
PROVIDERS: ADMIT Internal Medicine; ATTEND Internal Medicine

== ENCOUNTER 2023-09-23 01:38 | Observation (INO) ==
[2023-09-23 02:07] LABS: ABS Basophils 0.1 10^3/uL (0.0-0.1); ABS Eosinophils 0.1 10^3/uL (0.0-0.5); ABS Lymphocytes 1.9 10^3/uL (1.0-4.8); ABS Monocytes 0.7 10^3/uL (0.0-1.1); Eosinophil % 1.2 %; Hematocrit 32.4 % (38-53); Hemoglobin 11.1 g/dL (13.2-16.3); Lymphocyte % 24.5 %; Mean Corpuscular Hemoglobin 31.5 pg (27-33); Mean Corpuscular Hgb Conc 34.2 g/dL (31-36); Mean Corpuscular Volume 92.2 fL (80-97); Mean Platelet Volume 7.3 fL (7.5-11.2); Platelet Count 187 10^3/uL (150-450); Red Blood Count 3.51 10^6/uL (4.06-5.63); Red Cell Distribution Width 13.6 % (12-17); White Blood Count 7.8 10^3/uL (3.6-10.2)
[2023-09-23] MEDS: Ondansetron 4 mg VIAL 2 MG/ML 2 ml VIAL IV ONE ×3 (02:16→17:57)
[2023-09-23 02:21] LABS: INR 1.09 (0.83-1.13)
[2023-09-23] MEDS: Pantoprazole VIAL 40 MG VIAL IV ONE (02:21)
[2023-09-23] MEDS: cefTRIAXone 1 gm/50 mL D5W 1 GM/50 ML BAG IV ONE (02:30)
[2023-09-23] MEDS: Octreotide Acetate 50 MCG in NS 0.9% 50 ML 50 ML IV ONE (02:52)
[2023-09-23] MEDS: Pantoprazole 80 mg in NS BAG 80 MG/250 ML BAG IV ONE (03:01)
[2023-09-23] MEDS: Octreotide Acetate 500 MCG in NS 0.9% 100 ml BAG 100 ML IV SCH ×2 (03:03→23:22)
[2023-09-23 03:06] LABS: Albumin/Globulin Ratio 0.8 (1-3); C Reactive Protein 2.84 mg/L (<8.01); Calcium 9.6 mg/dL (8.6-10.3); Creatinine, Serum 1.53 mg/dL (0.67-1.17); Globulin 5.2 g/dL (2-4); Potassium 4.4 mmol/L (3.5-5.0); Total Protein 9.2 g/dL (6.4-8.9); eGFR CKD-EPI 50.1 (>60)
[2023-09-23] MEDS ORDERED: Lorazepam PYXIS KEY PRN (05:03)
[2023-09-23] MEDS: NS 0.9% 1000 ml BAG 1,000 ML IV SCH (05:41)
[2023-09-23] MEDS: LORazepam 2 mg VIAL 1 ml IV PUSH SCH (06:22)
[2023-09-23] MEDS: Multivitamins/Minerals TAB PO SCH (08:01)
[2023-09-23 08:47] LABS: ABS Basophils 0.1 10^3/uL (0.0-0.1); ABS Monocytes 0.6 10^3/uL (0.0-1.1); ABS Neutrophils 5.2 10^3/uL (1.5-7.6); Eosinophil % 0.2 %; Hematocrit 30.6 % (38-53); Hemoglobin 10.7 g/dL (13.2-16.3); Lymphocyte % 14.6 %; Mean Corpuscular Hgb Conc 35.1 g/dL (31-36); Mean Corpuscular Volume 91.2 fL (80-97); Mean Platelet Volume 7.8 fL (7.5-11.2); Platelet Count 160 10^3/uL (150-450); Red Blood Count 3.36 10^6/uL (4.06-5.63); Red Cell Distribution Width 13.7 % (12-17); White Blood Count 6.8 10^3/uL (3.6-10.2)
[2023-09-23] MEDS: Pantoprazole 80 mg in NS BAG 80 MG/250 ML BAG IV SCH ×2 (13:28→23:28)
[2023-09-23] MEDS: Thiamine 100 MG/ML 2 ml VIAL (200 mg) IM ONE (13:32)
[2023-09-23] MEDS ORDERED: Flumazenil 0.5 mg/5 ml 0.1 MG/ML 5 ml VIAL IV PRN (14:21)
[2023-09-23] MEDS ORDERED: Naloxone 0.4 mg VIAL 0.4 mg/ml 1 ml VIAL IV PUSH PRN (14:21)
[2023-09-23] MEDS ORDERED: Midazolam 10 mg/10 ml VIAL 1 mg/ml 10 ml VIAL (10 mg) ONE (14:44)
[2023-09-23] MEDS ORDERED: fentaNYL 100 mcg/2 ml 50 MCG/ML VIAL ONE (14:45)
[2023-09-23] MEDS: fentaNYL 100 mcg/2 ml 50 MCG/ML VIAL IV SLOW PU ONE (17:56)
[2023-09-23] MEDS: Lactated Ringers 1000 ml BAG 1,000 ML IV ONE (17:56)
[2023-09-23] MEDS: Lidocaine 2% JELLY 6 ML Topical TOPICAL ONE (17:57)
[2023-09-23] MEDS: Midazolam 10 mg/10 ml VIAL 1 mg/ml 10 ml VIAL (10 mg) IV SLOW PU ONE (17:57)
[2023-09-24 04:40] LABS: ABS Basophils 0.1 10^3/uL (0.0-0.1); ABS Eosinophils 0.2 10^3/uL (0.0-0.5); ABS Lymphocytes 1.4 10^3/uL (1.0-4.8); ABS Monocytes 0.7 10^3/uL (0.0-1.1); ABS Neutrophils 4.7 10^3/uL (1.5-7.6); Eosinophil % 3.2 %; Hematocrit 30.5 % (38-53); Hemoglobin 10.5 g/dL (13.2-16.3); Lymphocyte % 19.7 %; Mean Corpuscular Hemoglobin 31.7 pg (27-33); Mean Corpuscular Hgb Conc 34.3 g/dL (31-36); Mean Corpuscular Volume 92.4 fL (80-97); Mean Platelet Volume 7.9 fL (7.5-11.2); Platelet Count 138 10^3/uL (150-450); Red Cell Distribution Width 13.6 % (12-17)
[2023-09-24 06:05] LABS: Albumin 3.5 g/dL (3.2-5.2); Albumin/Globulin Ratio 0.8 (1-3); Calcium 9.3 mg/dL (8.6-10.3); Creatinine, Serum 1.87 mg/dL (0.67-1.17); Globulin 4.6 g/dL (2-4); Magnesium 1.5 mg/dL (1.9-2.7); Potassium 5.2 mmol/L (3.5-5.0); Total Bilirubin 1.6 mg/dL (0.2-1.0); Total Protein 8.1 g/dL (6.4-8.9); eGFR CKD-EPI 39.4 (>60)
[2023-09-24 07:46] LABS: Phosphorus 3.3 mg/dL (2.5-5.0)
[2023-09-24] MEDS: Magnesium Sulf 4 GM/100 ML IV 4,000 MG/100 ML BAG IVPB ONE (08:49)
[2023-09-24] MEDS: Ondansetron 4 mg VIAL 2 MG/ML 2 ml VIAL IV PRN (20:11)
[2023-09-24] MEDS: Ondansetron 4 mg VIAL 2 MG/ML 2 ml VIAL ONE (20:18)
[2023-09-25 04:00] LABS: ABS Basophils 0.1 10^3/uL (0.0-0.1); ABS Eosinophils 0.2 10^3/uL (0.0-0.5); ABS Lymphocytes 1.5 10^3/uL (1.0-4.8); ABS Monocytes 0.8 10^3/uL (0.0-1.1); ABS Neutrophils 6.6 10^3/uL (1.5-7.6); ABS Nucleated RBC 0.01 10^3/ul; Eosinophil % 2.4 %; Lymphocyte % 16.6 %; Mean Corpuscular Hemoglobin 31.6 pg (27-33); Mean Corpuscular Hgb Conc 34.4 g/dL (31-36); Mean Corpuscular Volume 91.9 fL (80-97); Mean Platelet Volume 8.1 fL (7.5-11.2); Nucleated Red Blood Cells % 0.1 %/100WBC (0.0-0.8); Platelet Count 148 10^3/uL (150-450); Red Blood Count 3.48 10^6/uL (4.06-5.63); Red Cell Distribution Width 13.5 % (12-17); White Blood Count 9.3 10^3/uL (3.6-10.2)
[2023-09-25 04:49] LABS: Albumin 3.6 g/dL (3.2-5.2); Albumin/Globulin Ratio 0.8 (1-3); Calcium 9.6 mg/dL (8.6-10.3); Creatinine, Serum 1.88 mg/dL (0.67-1.17); Globulin 4.8 g/dL (2-4); Magnesium 2.1 mg/dL (1.9-2.7); Potassium 5.4 mmol/L (3.5-5.0); Total Bilirubin 1.2 mg/dL (0.2-1.0); Total Protein 8.4 g/dL (6.4-8.9); eGFR CKD-EPI 39.2 (>60)
[2023-09-25 09:16] VITALS: BP 140/98
== END 2023-09-25 12:10 | disposition home or self-care (01) ==
LOC: EDHOLD 01:38 → ED 01:38 → ICU 16:43
PROVIDERS: ADMIT Hospitalist; ATTEND Hospitalist